=== PATIENT | male | born 1940 | race African-American/Black ===

== ENCOUNTER → 2018-01-08 | Outpatient (CLI) | payer BC | END | disposition home or self-care (01) | LOC: US 11:59 | DX: I65.23 Occlusion and stenosis of bilateral carotid arteries (principal); R09.89 Other specified symptoms and signs involving the circulatory and respiratory systems; R60.0 Localized edema | CPT/HCPCS: 93880; 93970 ==

== ENCOUNTER 2021-11-04 13:51 | Emergency (ER) | payer MEDICARE, BC ==
[~2021-11-04] VITALS: Ht 170.2 cm; Wt 70.5 kg
[~2021-11-04 13:51] MED LIST: ASPI-482 PO; ATEN1TAB3 PO; TRIA1CAP3 PO
[2021-11-04] MEDS ORDERED: LIDOCAINE 1%/EPI 1:100,000 20 ML VIAL. INJ ONE (14:15)
[2021-11-04] MEDS ORDERED: OXYMETAZOLINE 0.05% NASAL SPRAY 30ML BOTTLE. NS ONE (14:15)
--- NOTE | 2021-11-04 16:19 | PHYS DOC ---
Past Medical History Past Medical History: Hypertension Past Surgical History: No Surgical History Smoking Status: Never Smoker Alcohol Use: None Drug Use: None General Adult EDM: Chief Complaint: NOSEBLEED HPI: HPI: Patient is a 80 year old male who presents from [facility] urgent care with nosebleed that began around 1000. Patient reports he gets frequent nosebleeds, but has not had one in approximately 6 months. He also states he has not had a nosebleed go on for as long as this 1 has today. At urgent care, he states they gave him Afrin nasal spray with packing without resolution of symptoms. Patient denies use of blood thinners. He takes medication for hypertension, but he is u nsure what medication. Review of Systems: Review of Systems: ROS negative or noncontributory except as mentioned in HPI. Heart Score: C/O Chest Pain: No Current Medications: Current Medications Medications (Trade) Dose Ordered Sig/Nish Start Time Stop Time Status Last Admin Dose Admin Lidocaine/ Epinephrine (LIDOCAINE 1%-EPI 1:100,000 Multi-Dose) 20 ml 1X ONCE 11/04/21 14:15 11/04/21 14:17 DC 11/04/21 14:15 20 ML Oxymetazoline HCl (Afrin) 2 spray 1X ONCE 11/04/21 14:15 11/04/21 14:17 DC 11/04/21 14:15 2 SPRAY Allergies: Allergies: Allergies Coded Allergies Type Severity Reaction Last Updated Verified iodine Allergy Unknown burning 01/07/18 Yes Physical Exam: PE: Constitutional: Well developed, well nourished, no acute distress, non-toxic appearance. HENT: Normocephalic, atraumatic, bilateral external ears without deformity or discharge, oropharynx moist, nose bleeding from right naris on initial exam, blood clot noticed in oropharynx. Eyes: EOMI, conjunctiva pink and moist, no discharge, some crusting in lacrimal fold. Neck: Normal range of motion, no stridor. Cardiovascular: Heart regular rate and rhythm, no murmur. Lungs & Thorax: Bilateral breath sounds clear to auscultation. Skin: Warm, dry, no erythema, no rash. Neurologic: Alert and oriented x4, no focal deficits noted. Current Patient Data: Vital Signs: Vital Signs Date Time Temp Pulse Resp B/P (MAP) Pulse Ox O2 Delivery O2 Flow Rate FiO2 11/04/21 14:29 96.2 45 18 127/57 (80) 100 Room Air 96.2 EKG: EKG: EKG Interpreted by Dr. Pool at 1521: Regular rate and rhythm 54 bpm with no ectopic beats. First-degree AV block FL interval 280 ms. No STEMI. Course & Med Decision Making: Course & Med Decision Making Pertinent Labs and Imaging studies reviewed. (See chart for details) Is an 80-year-old male who presents with a right-sided nosebleed that began this morning. He was seen in urgent care, where they were unable to stop the bleeding. They referred him to the emergency department. Here in the ER, the bleeding did stop spontaneously. Patient heart rate fluctuated between the mid 40s and mid 50s. EKG was ordered. Patient seems to have a first-degree heart block. He has no symptoms of chest pain, palpitations, lightheadedness or fatigue. Patient will be given follow-up with cardiology. Upon eating lunch, the bleeding resumed. At that time, I mixed a one-to-one ratio of Afrin and lidocaine/epinephrine and placed it on cost. I used that gauze to pack the nose and clamped the nose for approximately 25 minutes. At that time, the bleeding had stopped again. The bleed seem to originate anteriorly. After a period of approximately 15 minutes, I had the patient stand up to walk around the department to ensure the epistaxis would not resume. Immediately upon standing, bleeding resumed. He sat back down and the bleeding stopped. At that time, I decided to place a Rhino Rocket so that he would be able to ambulate without the nosebleeding. Advised the patient and his daughter at bedside that the Rhino Rocket would need to be removed within [address] did [address] a call to Dr. Carnes's practice to attempt to set up a follow-up appointment for him tomorrow, if she was available. I did not receive a call back. Patient was provided with her office contact information to attempt to schedule follow-up appointment. If he is unable to be seen in the next 48 hours, he is instructed to return to urgent care or here in the ED to have the Rhino Rocket removed. Patient and his daughter at bedside understand and are agreeable to discharge plan. Upon standing while attempting to leave the department, patient nose bleed resumed once again. Blood leaked around the Rhino Rocket. At this point, patient will be transferred to hospital with higher level of care and ENT available. Patient and his family are agreeable to the change in treatment plan. Bed is available at [facility] and patient is accepted by Dona Yap NP. Mehrdad Disclaimer: Mehrdad Disclaimer: This electronic medical record was generated, in whole or in part, using a voice recognition dictation system. Departure Departure Impression: Primary Impression: Right-sided epistaxis Disposition: HOME / SELF CARE / HOMELESS Condition: IMPROVED Referrals: JUAN JOSE GRAY MD (PCP) NHI CARNES MD, DONALD J MD Patient Instructions: First Degree Atrioventricular Block, Nosebleed, Easy -to-Read Additional Instructions: The rhino-rocket will need to be removed within 3-4 days. I spoke with Dr. Olivares, ENT who advised you make an appointment for Sunday or Sunday for nasal packing removal. He assured me that they would be able to see you one of those two days. At that time, you may also address the recurrent nosebleeds. Return if the bleeding resumes or you develop new symptoms. KRISTEN CRAWFORD Nov 04, 2021 16:19
--- NOTE | 2021-11-04 18:05 | EKG ---
[facility] [address] [place] [address] Test Date: 2021-11-04 Test Time: 15:19:05 Pat Name: FELIPE SILVEIRA Department: Room: Gender: M Tax Assistant: : [id number] Requested By: KRISTEN CRAWFORD Order Number: [id number] Reading MD: Golden Olson Measurements Intervals [place] Rate: 54 P: [place]: QRS: -31 QRSD: 82 T: 51 QT: 444 QTc: 423 Interpretive Statements SINUS ARRHYTHMIA ABNORMAL LEFT AXIS DEVIATION LEFT ANTERIOR FASCICULAR BLOCK QRS(T) CONTOUR ABNORMALITY CONSISTENT WITH ANTEROSEPTAL INFARCT PROBABLY OLD ABNORMAL ECG Electronically Signed On 11-05-2021 15:15:47 POULTRY OFFAL ICER by Golden Olson
[2021-11-04] MEDS ORDERED: TRANEXAMIC ACID 1,000 MG/10 ML VIAL. TOP ONE (19:15)
[2021-11-04 19:32] LABS: BASO # 0.1 x10^3/uL (0.0-0.2); BASO % 1 % (0-3); EOS # 0.2 x10^3/uL (0.0-0.7); EOS % 3 % (0-3); HEMATOCRIT 21.2 % (39.0-53.0); HEMOGLOBIN 7.1 g/dL (13.0-17.5); LYMPH # 0.9 x10^3/uL (1.0-4.8); LYMPH % 18 % (24-48); MEAN CORPUSCULAR HEMOGLOBIN 31 pg (25-35); MEAN CORPUSCULAR HGB CONC 34 g/dL (31-37); MEAN CORPUSCULAR VOLUME 93 fL (79-100); MONO # 0.4 x10^3/uL (0.0-1.1); MONO % 9 % (0-9); NEUT # 3.3 x10^3/uL (1.8-7.7); NEUT % 69 % (31-73); PLATELET COUNT 133 x10^3/uL (140-400); RED BLOOD COUNT 2.28 x10^6/uL (4.30-5.70); RED CELL DISTRIBUTION WIDTH 14.2 % (11.5-14.5); WHITE BLOOD COUNT 4.8 x10^3/uL (4.0-11.0)
[2021-11-04 19:46] LABS: CALCIUM 7.9 mg/dL (8.5-10.1); CREATININE 9.4 mg/dL (0.7-1.3); GFR 6.5; POTASSIUM 5.2 mmol/L (3.5-5.1)
[2021-11-04 19:53] LABS: ALBUMIN 2.9 g/dL (3.4-5.0); TOTAL BILIRUBIN 0.4 mg/dL (0.2-1.0); TOTAL PROTEIN 5.9 g/dL (6.4-8.2)
[2021-11-04 22:20] VITALS: BP 131/86
== END 2021-11-05 | disposition home or self-care (01) ==
LOC: ER 13:51
DX: R04.0 Epistaxis (principal); Z20.822 Contact with and (suspected) exposure to COVID-19; I10 Essential (primary) hypertension; Z88.8 Allergy status to other drugs, medicaments and biological substances
CPT/HCPCS: 30901; 36415; 80053; 85025; 85384; 85610; 85730; 87426; 93005; 99285; J3490; U0003; U0005; 99284